=== PATIENT | male | born 1940 | race Caucasian/White ===

== ENCOUNTER 2022-08-24 07:18 | Day surgery (SDC) | payer MEDICARE ==
[2022-08-24] VITALS (11 sets, daily range): BP systolic 124–145; BP diastolic 56–68; PULSE 59–77; TEMP 97.6–98.7
[~2022-08-24] VITALS: Ht 175.3 cm; Wt 129.3 kg
[~2022-08-24 07:18] MED LIST: ATROVENT I0.2 MG/1 M IH; CIPRO 500MG TA500 MG PO; FLOMAX 0.40.4 MG/CAP PO; PRINZIDE 12.5 M1 TA1 PO; REQUIP2 MG PO; RT ADVAIR 128 DISKUS IH; ZOLOFT 100MG100 MG PO
[2022-08-24 08:42] LABS: BASO % 0.2 % (0.0-2.0); EOS # 0.2 K/mm3 (0.0-0.7); EOS % 2.9 % (0.0-4.0); GRAN # 6.1 K/mm3 (1.4-6.5); GRAN % 72.2 % (42.2-75.2); HEMOGLOBIN 11.4 g/dl (13.5-18.0); LYMPH # 1.2 K/mm3 (1.2-3.4); MEAN CELL VOLUME 88 fl (80.0-100.0); MEAN CORPUSCULAR HEMOGLOBIN 30 pg (27-31); MEAN CORPUSCULAR HGB CONC 33 g/dl (33.0-37.0); MEAN PLATELET VOLUME 9.3 fl (7.4-10.4); MONO # 0.9 K/mm3 (0.1-0.6); MONO % 10.3 % (1.7-9.3); PLATELET COUNT 215 K/mm3 (130-400); RED BLOOD COUNT 3.86 M/mm3 (4.20-5.60)
[2022-08-24 08:45] LABS: HEMATOCRIT 34.1 % (42.0-52.0)
[2022-08-24] MEDS ORDERED: PROMACTA12.5 MG PO (09:03)
[2022-08-24] MEDS ORDERED: GLUCOPHAGE500 MG/TAB PO (09:04)
[2022-08-24] MEDS ORDERED: ZYLOPRIM 100MG100 MG PO (09:04)
[2022-08-24] MEDS ORDERED: COZAAR100 MG PO (09:05)
[2022-08-24] MEDS ORDERED: MIRAPEX0.25 MG PO (09:07)
[2022-08-24] MEDS ORDERED: ALDACTONE 25MG25 M1 PO (09:08)
[2022-08-24] MEDS ORDERED: SINGULAIR 110 MG/TAB PO (09:09)
[2022-08-24] MEDS ORDERED: LASIX 40MG TABL40 MG PO (09:10)
[2022-08-24 09:11] LABS: CREATININE, serum 1.88 mg/dL (0.72-1.25); POTASSIUM 4.8 mmol/L (3.5-4.5)
[2022-08-24] MEDS ORDERED: TAMBOCOR50 MG PO (09:12)
[2022-08-24] MEDS ORDERED: PEPCID 20MG TAB20 MG PO (09:13)
[2022-08-24] MEDS ORDERED: ZOLOFT 100MG100 MG PO (09:14)
[2022-08-24] MEDS ORDERED: XANAX 0.5MG0.5 MG PO (09:15)
[2022-08-24] MEDS ORDERED: ATROVENT I0.2 MG/1 M IH (09:16)
[2022-08-24] MEDS ORDERED: PULMICORT0.5 MG/2 M IH (09:18)
--- NOTE | 2022-08-24 19:30 | NUR ---
pt reports having increased spasms and leaking from catheter, manual irrigation provided w some clots. pt reports some relief and catheter is flowing.
--- NOTE | 2022-08-24 21:26 | NUR ---
pt resting in bed. meds given and assessment complete. pt having bladder spasms but reports that they arent as painful. he is having some leakage around the catheter as well. CBI running w pink/reddish output. scds to ble. fluids infusing into right forearm. pt denies other needs at this time. call light within reach.
--- NOTE | 2022-08-24 23:22 | NUR ---
pt pulled catheter and IV out. states that he wasnt able to sleep while being hooked up to these things. pt oriented to person and place. unable to identify the month and year. pt denying new IV start. CBI back in place and house like pink output. pt denies pressure in his bladder.
[2022-08-25 03:40] VITALS: BP 152/75; PULSE 68; TEMP 97.7
--- NOTE | 2022-08-25 06:31 | NUR ---
catheter primed and pulled without difficulty. instructed patient on six cup routine, verbalizes understanding.
[2022-08-25 07:22] LABS: HEMOGLOBIN 10.4 g/dl (13.5-18.0); MEAN CELL VOLUME 90 fl (80.0-100.0); MEAN CORPUSCULAR HEMOGLOBIN 30 pg (27-31); MEAN CORPUSCULAR HGB CONC 33 g/dl (33.0-37.0); MEAN PLATELET VOLUME 9.1 fl (7.4-10.4); PLATELET COUNT 183 K/mm3 (130-400); RED BLOOD COUNT 3.53 M/mm3 (4.20-5.60); REDCELL DISTRIBUTION WIDTH-CV 15.9 % (11.5-14.5)
[2022-08-25 07:27] LABS: HEMATOCRIT 31.9 % (42.0-52.0)
[2022-08-25 07:37] VITALS: BP 130/69; PULSE 69; TEMP 97.6
[2022-08-25 07:37] LABS: CALCIUM 8.8 mg/dL (8.4-10.2); CREATININE, serum 1.51 mg/dL (0.72-1.25)
--- NOTE | 2022-08-25 08:15 | NUR ---
0800 assessment completed. Patient denies pain or discomfort at this time. Patient continues to voice understanding of need for urine samples.
--- NOTE | 2022-08-25 10:09 | NUR ---
DISCHARGE INSTRUCTIONS REVIEWED WITH PT AND . QUESTIONS SOLICITED AND ANSWERED. PT TO FOLLOW UP WITH UROLOGY AND THEY WILL CALL WITH APPT.
== END 2022-08-25 10:00 | disposition home or self-care (01) ==
LOC: SDCO 07:18 → SURG 07:18 → SDCO 09:30 → SURG 11:30 → SDCO 08-25 10:00
PROVIDERS: Urology
DX: N40.1 Benign prostatic hyperplasia with lower urinary tract symptoms (principal); R39.12 Poor urinary stream; R31.0 Gross hematuria; R39.14 Feeling of incomplete bladder emptying; R33.9 Retention of urine, unspecified; N21.0 Calculus in bladder; Z28.310 Unvaccinated for COVID-19; Z28.9 Immunization not carried out for unspecified reason; E11.9 Type 2 diabetes mellitus without complications; Z79.84 Long term (current) use of oral hypoglycemic drugs; I10 Essential (primary) hypertension; Z87.891 Personal history of nicotine dependence; Z85.828 Personal history of other malignant neoplasm of skin; Z79.899 Other long term (current) drug therapy
CPT/HCPCS: OP; J0690; J2250; J2405; J2704; J3010; J3480; J7120